=== PATIENT | male | born 2000 | race Caucasian/White ===

== ENCOUNTER 2018-05-11 20:59 | Emergency (ER) | payer BC ==
[~2018-05-11] VITALS: Ht 177.8 cm; Wt 67.6 kg
--- NOTE | ~2018-05-11 | EKG ---
[place], [place] ELECTROCARDIOGRAM REPORT NAME: ARSEN BUENO UNIT #: [id number] ROOM: DOCTOR: EPIPHANY DRAFT REPORT BIRTHDATE: [birth year] [facility] Test Date: 2018-05-11 Test Time: 21:25:43 Pat Name: ARSEN BUENO Department: ER Room: 18 Gender: M Insight Leader: Janelle Barrera : 2000 Requested By: KIKO BURNHAM PA-C Order Number: [id number] Reading MD: Lucero Fernandez MD Measurements Intervals [place] Rate: 83 P: 66 MO: 152 QRS: 79 QRSD: 89 T: 59 QT: 337 QTc: 396 Interpretive Statements Sinus rhythm Normal ECG Electronically Signed On 05-15-2018 7:11:00 PST by Lucero Fernandez MD CM:EKGRPT:ELECTROCARDIOGRAM REPORT [id number] KIKO BURNHAM PA-C EPIPHANY DRAFT REPORT KIKO BURNHAM PA-C
== END 2018-05-11 22:50 | disposition home or self-care (01) ==
LOC: ED 20:59
DX: F41.9 Anxiety disorder, unspecified (principal); R07.9 Chest pain, unspecified; F17.200 Nicotine dependence, unspecified, uncomplicated

== ENCOUNTER → 2018-06-02 | Outpatient (CLI) | payer BC ==
[2018-06-02 08:37] LABS: HEMATOCRIT 43.6 % (42.0-52.0); HEMOGLOBIN 15.4 g/dl (14.0-18.0); MEAN CELL VOLUME 89.7 fl (80.0-94.0); MEAN CORPUSCULAR HGB 31.7 pg (27.0-31.0); MEAN CORPUSCULAR HGB CONC 35.3 g/dl (33.0-37.0); MEAN PLATELET VOLUME 10.5 fl (9.6-12.3); RED BLOOD COUNT 4.86 10*6/uL (4.50-5.90); RED CELL DISTRI WIDTH 12.7 % (0-14.5); WHITE BLOOD COUNT 5.5 10*3/uL (4.8-10.8)
[2018-06-02 09:07] LABS: ALBUMIN 4.2 gm/dl (3.1-4.5); ALKALINE PHOSPHATASE 67 U/L (45-117); BUN 8 mg/dl (7-24); CHLORIDE 105 mmol/L (98-107); CREATININE 0.98 mg/dL (0.70-1.30); POTASSIUM 3.6 mmol/L (3.5-5.1); SGOT/AST 7 IU/L (3-35); SGPT/ALT 14 U/L (12-78); SODIUM 140 mmol/L (136-145); TOTAL PROTEIN 7.7 gm/dL (6.4-8.2)
== END | disposition home or self-care (01) ==
LOC: LAB 08:11
PROVIDERS: Family Medicine
DX: E55.9 Vitamin D deficiency, unspecified (principal); F41.1 Generalized anxiety disorder; D64.9 Anemia, unspecified; M79.10 Myalgia, unspecified site; F33.9 Major depressive disorder, recurrent, unspecified; T14.8XXA Other injury of unspecified body region, initial encounter; R25.1 Tremor, unspecified; E74.00 Glycogen storage disease, unspecified; R00.2 Palpitations; W57.XXXA Bitten or stung by nonvenomous insect and other nonvenomous arthropods, initial encounter; Y93.89 Activity, other specified; Y92.89 Other specified places as the place of occurrence of the external cause; Y99.8 Other external cause status

== ENCOUNTER 2018-07-05 14:55 | Emergency (ER) | payer BC ==
[~2018-07-05] VITALS: Ht 172.7 cm; Wt 67.1 kg
[2018-07-06] MEDS ORDERED: NORCO 5-325 TA1 EACH PO (19:27)
[2018-07-06] MEDS ORDERED: NAPROSYN500 MG PO (20:28)
[2018-07-06] MEDS ORDERED: MEDROL DOSEPAK4 MG PO (20:28)
== END 2018-07-05 15:19 | disposition home or self-care (01) ==
LOC: ED 14:55
DX: M79.602 Pain in left arm (principal); R20.2 Paresthesia of skin; R20.0 Anesthesia of skin; F17.200 Nicotine dependence, unspecified, uncomplicated; X58.XXXA Exposure to other specified factors, initial encounter; Y93.89 Activity, other specified; Y92.89 Other specified places as the place of occurrence of the external cause; Y99.8 Other external cause status

== ENCOUNTER 2018-07-06 18:35 | Emergency (ER) | payer BC ==
--- NOTE | ~2018-07-06 | EKG ---
[place], [place] ELECTROCARDIOGRAM REPORT NAME: ARSEN BUENO UNIT #: [id number] ROOM: DOCTOR: EPIPHANY DRAFT REPORT BIRTHDATE: [birth year] [facility] Test Date: 2018-07-06 Test Time: 19:28:41 Pat Name: ARSEN BUENO Department: Room: Gender: [employer] Pilot: : 2000 Requested By: KETAN MORA Order Number: [id number] Reading MD: Cameron Lau MD Measurements Intervals [place] Rate: 67 P: 12 HI: 157 QRS: 57 QRSD: 87 T: 44 QT: 368 QTc: 389 Interpretive Statements Sinus rhythm Compared to ECG 05/11/2018 21:25:43 No significant changes Electronically Signed On 07-07-2018 10:47:10 PST by Cameron Lau MD CM:EKGRPT:ELECTROCARDIOGRAM REPORT [id number] KETAN MORA EPIPHANY DRAFT REPORT KETAN MORA
[2018-07-06] MEDS ORDERED: NORCO 5-325 TA1 EACH PO (19:27)
[2018-07-06] MEDS ORDERED: MEDROL DOSEPAK4 MG PO (20:28)
[2018-07-06] MEDS ORDERED: NAPROSYN500 MG PO (20:28)
== END 2018-07-06 20:31 | disposition home or self-care (01) ==
LOC: ED 18:35
DX: R09.1 Pleurisy (principal)

== ENCOUNTER → 2018-07-19 | Outpatient (CLI) | payer BC ==
[~2018-07-19] MED LIST: MEDROL DOSEPAK4 MG PO; NAPROSYN500 MG PO; NORCO 5-325 TA1 EACH PO
--- NOTE | ~2018-07-19 | HM ---
[place], [place] HOLTER MONITOR REPORT NAME: ARSEN BUENO UNIT #: [id number] ROOM: DOCTOR: NOA RESENDIZ MD BIRTHDATE: [birth year] DOS: A 48-HOUR HOLTER MONITOR REFERRING PHYSICIAN: Dr. Ollie Haney. INDICATIONS: Palpitations and chest pain. PROCEDURE: A 48-hour Holter recording was obtained from the patient starting on 07/19/2018. The examination was analyzed on 07/24/2018. The study was interpreted and this is being dictated on 07/24/2018. FINDINGS: The patient was in sinus rhythm with sinus arrhythmia during the examination. His average heart rate was 79, heart rate in sinus rhythm varied from 46-150 beats per minute. No ventricular premature contractions were recorded. There was no ventricular tachycardia. The patient had 23 premature atrial contractions recorded with 2 atrial couplets. No SVT or prolonged pauses were seen. The patient did submit a diary. He listed symptoms of heart pounding while driving. He was in sinus rhythm with a heart rate of 106 at that time. He had a sharp pain and hot flashes at 1:24 a.m., at which time he was in sinus rhythm at a rate of 69. He complained of chest pain and heart palpitations while walking and was in sinus rhythm at a rate of 101. No significant arrhythmias were recorded during symptoms of heart pounding, etc. IMPRESSION: Normal 48-hour Holter monitor for a patient of this age group. NOA RESENDIZ MD CM:HOLTER:HOLTER MONITOR REPORT 32 [id number] NOA RESENDIZ MD
== END | disposition home or self-care (01) ==
LOC: CARD 07-17 10:00
DX: R00.2 Palpitations (principal); R00.9 Unspecified abnormalities of heart beat; R07.9 Chest pain, unspecified

== ENCOUNTER 2024-08-26 22:11 | Emergency (ER) | payer BC ==
[~2024-08-26] VITALS: Ht 175.2 cm; Wt 86.2 kg
[2024-08-27] MEDS ORDERED: MEDROL DOSEPAK4 MG PO (01:01)
== END 2024-08-27 01:13 | disposition home or self-care (01) ==
LOC: ED 22:11
DX: B34.9 Viral infection, unspecified (principal); F41.9 Anxiety disorder, unspecified; Z20.822 Contact with and (suspected) exposure to COVID-19; Z79.899 Other long term (current) drug therapy

== ENCOUNTER 2024-12-06 23:35 | Emergency (ER) | payer BC ==
[~2024-12-06] VITALS: Ht 170.1 cm; Wt 90.7 kg
[2024-12-07] MEDS ORDERED: METHOCARBAMOL 750 MG TAB PO ONE (00:05)
[2024-12-07] MEDS ORDERED: HYDROmorphone Hydrochloride 1 MG/ML SYR IV ONE ×2 (00:40→00:55)
== END 2024-12-07 02:09 | disposition home or self-care (01) ==
LOC: ED 23:35
DX: M24.412 Recurrent dislocation, left shoulder (principal); Z79.899 Other long term (current) drug therapy